=== PATIENT | female | born 2000 | race Caucasian/White ===

== ENCOUNTER 2021-01-26 20:20 | Emergency (ER) | payer BC ==
[2021-01-26 20:27] VITALS: BP 99/66; PULSE 92; TEMP 98.1; BMI 29.2
[2021-01-26 23:52] LABS: BASO % 1.2 % (0-2.0); EOS % 3.8 % (0-4.5); HEMATOCRIT 37.7 % (32.4-45.2); MCH 30.8 pg (25.7-33.7); MCHC 34.4 g/dl (32.0-36.0); MEAN CELL VOLUME 89.5 fl (80-96); MEAN PLT VOLUME 7.4 fl (7.5-11.1); MONO % 10.7 % (3.8-10.2); NEUT % 53.3 % (42.8-82.8); PLATELET COUNT 366 10^3/uL (134-434); RBC 4.21 M/mm3 (3.60-5.2); WHITE BLOOD COUNT 10.6 K/mm3 (4.0-10.0)
[2021-01-26 23:58] LABS: INR 1.19 (0.83-1.09); PROTHROMBIN TIME (PATIENT) 14.7 SEC (9.7-13.0)
[2021-01-27 00:01] LABS: ACTIVATED PTT 24.2 SECONDS (25.2-36.5)
[2021-01-27 00:08] LABS: EPI CELLS 11 /uL (0-25.1); HYALINE CASTS 0 /uL (0-3.1); PH,URINE 8.5 (5.0-8.0); URINE APPEARANCE CLEAR; URINE BACTERIA 141 /uL (0-1359); URINE BILIRUBIN NEGATIVE (NEGATIVE); URINE COLOR YELLOW; URINE GLUCOSE (UA) NEGATIVE (NEGATIVE); URINE KETONE NEGATIVE (NEGATIVE); URINE LEUK ESTERASE NEGATIVE (NEGATIVE); URINE NITRITE NEGATIVE (NEGATIVE); URINE PROTEIN NEGATIVE (NEGATIVE); URINE RBC 14 /uL (0-23.9); URINE WBC 15 /uL (0-25.8)
[2021-01-27 00:13] LABS: CALCIUM 8.6 mg/dL (8.5-10.1)
[2021-01-27 00:14] LABS: ALBUMIN 4.2 g/dl (3.4-5.0); BLOOD UREA NITROGEN 7.5 mg/dL (7-18)
[2021-01-27 00:17] LABS: CREATININE 0.6 mg/dL (0.55-1.3)
[2021-01-27 00:19] LABS: BILIRUBIN,TOTAL 0.3 mg/dL (0.2-1); TOT PROT 7.3 g/dl (6.4-8.2)
[2021-01-27] MEDS ORDERED: SODIUM CHLORIDE FOR INHALATION 3 ML VIAL.NEB IH ONE (00:25)
== END 2021-01-27 02:18 | disposition home or self-care (01) ==
LOC: JERFT 20:20
DX: R05.9 Cough, unspecified (principal); Z3A.00 Weeks of gestation of pregnancy not specified
CPT/HCPCS: 36415; 71046-TC-FY; 76817-TC; 80053; 81003; 84702; 84703; 85025; 85610; 85730; 86850; 86900; 86901; 87086; 99284-25; C9803; U0003; U0005

== ENCOUNTER 2021-01-30 20:24 | Emergency (ER) | payer BC ==
[2021-01-30 20:37] VITALS: TEMP 98.3; BMI 28.3
[2021-01-30 23:06] VITALS: BP 112/80; PULSE 74
== END 2021-01-30 23:19 | disposition home or self-care (01) ==
LOC: JER 20:24
DX: O03.9 Complete or unspecified spontaneous abortion without complication (principal)
CPT/HCPCS: 36415; 84702; 99283-25

== ENCOUNTER 2022-09-20 17:54 | Emergency (ER) | payer BC, OTHER ==
[2022-09-20 18:13] VITALS: BP 94/59; PULSE 85; RESP 18; TEMP 98; BMI 25.2
[2022-09-20 21:09] LABS: EPI CELLS 15 /uL (0-25.1); HYALINE CASTS 2 /uL (0-3.1); PH,URINE 6.5 (5.0-8.0); URINE APPEARANCE CLEAR; URINE BACTERIA 60 /uL (0-1359); URINE BILIRUBIN NEGATIVE (NEGATIVE); URINE COLOR YELLOW; URINE GLUCOSE (UA) NEGATIVE (NEGATIVE); URINE KETONE TRACE (NEGATIVE); URINE LEUK ESTERASE TRACE (NEGATIVE); URINE NITRITE NEGATIVE (NEGATIVE); URINE PROTEIN TRACE (NEGATIVE); URINE RBC 105 /uL (0-23.9); URINE WBC 24 /uL (0-25.8)
[2022-09-20 21:15] LABS: THROAT:GRP A STREP NOT DETECTED (NOTDETECTED)
[2022-09-20 21:23] LABS: HCG,QUALITATIVE URINE Negative
== END 2022-09-20 23:59 | disposition home or self-care (01) ==
LOC: JER 17:54 → JERFT 17:54
DX: B34.9 Viral infection, unspecified (principal); R05.9 Cough, unspecified; R50.9 Fever, unspecified; R07.0 Pain in throat; R10.32 Left lower quadrant pain; N91.2 Amenorrhea, unspecified; Z20.822 Contact with and (suspected) exposure to COVID-19
CPT/HCPCS: 0241U-QW; 71046-TC-FY; 81003; 84703; 87651; 99284-25